=== PATIENT | male | born 2000 | race Two or more races ===

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

== ENCOUNTER 2022-05-06 11:24 | Emergency (ER) | payer MEDICAID, OTHER ==
[~2022-05-06] VITALS: Ht 177.8 cm; Wt 111.0 kg
[2022-05-06 11:58] VITALS: BP 114/78
[2022-05-06] MEDS ORDERED: IBUPROFEN 400MG TABLET PO ONE (12:45)
[2022-05-06] MEDS ORDERED: DICYCLOMINE 10 MG/5 ML ORAL SYR PO STA (13:03)
[2022-05-06] MEDS ORDERED: KETOROLAC 30MG/ML VIAL IM STA (13:03)
[2022-05-06] MEDS ORDERED: VISCOUS LIDOCAINE 2% 15 ML UDC PO STA (13:03)
[2022-05-06] MEDS ORDERED: MAGNESIUM/ALUMINUM HYDROXIDE/SIMETHICONE 30ML UDC PO STA (13:03)
[2022-05-06] MEDS ORDERED: TOPUD PO (13:06)
== END 2022-05-06 13:25 | disposition home or self-care (01) ==
LOC: ER 11:24
DX: M54.9 Dorsalgia, unspecified (principal)
CPT/HCPCS: 96372; 99284; J1885